=== PATIENT | male | born 1980 | race Caucasian/White ===

== ENCOUNTER 2018-04-09 23:38 | Emergency (ER) | payer OTHER ==
[2018-04-10 00:56] LABS: Absolute Lymphocytes (CBC) 2.3 K/uL (0.7-4.9); Absolute Monocytes 0.6 K/uL (0.1-1.3); Absolute Neutrophil 4.4 K/uL (1.8-8.0); Basophils % 0.7 % (0-1.3); Eosinophils % 1.5 % (0-4.4); Hematocrit 44.6 % (39.6-49.0); Lymphocytes % 30.8 % (15.3-44.8); MPV 9.2 fL (7.6-11.3); Monocytes % 7.7 % (3.3-12.3); RBC Red Blood Cell Count 4.91 M/uL (4.33-5.43)
[2018-04-10] MEDS ORDERED: NA CHLORIDE 0.9% 1,000 ML ONE (00:56)
[2018-04-10] MEDS ORDERED: MORPHINE 4 MG/ML SYR ONE (00:56)
[2018-04-10] MEDS ORDERED: ONDANSETRON 4 MG/2 ML VIAL ONE (00:56)
[2018-04-10] MEDS ORDERED: KETOROLAC 30 MG/ML INJ ONE (00:56)
[2018-04-10 01:00] LABS: Protime INR 0.92
[2018-04-10 01:25] LABS: Barbiturates POSITIVE (NEGATIVE); Benzodiazepines NEGATIVE (NEGATIVE); Cocaine NEGATIVE (NEGATIVE); METHAMPHETAM NEGATIVE (NEGATIVE); Methadone NEGATIVE (NEGATIVE); Opiates NEGATIVE (NEGATIVE); Phencyclidine NEGATIVE (NEGATIVE); THC Cannibis POSITIVE (NEGATIVE)
[2018-04-10 01:25] LABS: ALT/SGPT 55 U/L (12-78); AST/SGOT 31 U/L (15-37); Albumin 3.7 g/dL (3.4-5.0); Alkaline Phosphatase 68 U/L (45-117); BUN Blood Urea Nitrogen 7 mg/dL (7-18); Bicarbonate 29 mmol/L (21-32); Bilirubin Direct < 0.1 mg/dL (0-0.2); Bilirubin Total 0.2 mg/dL (0.2-1.0); Glucose Level 92 mg/dL (74-106); Magnesium 2.3 mg/dL (1.8-2.4); NT PRO-BNP 9 pg/mL (<125); Potassium 3.8 mmol/L (3.5-5.1); Protein, Total 7.9 g/dL (6.4-8.2); Sodium Level 142 mmol/L (136-145); Troponin (Emerg Dept Use Only) < 0.02 ng/mL (0.0-0.045)
[2018-04-10 01:39] LABS: Urine Blood NEGATIVE (NEG); Urine Glucose NEGATIVE (NEG); Urine Protein NEGATIVE (NEG)
[2018-04-10 01:46] LABS: Thyroid Stimulating Hormone 0.456 uIU/mL (0.360-3.740)
--- NOTE | 2018-04-10 01:54 | EDPHYS ---
Physician Documentation [facility] Name: Ramirez Barajas Age: 38 yrs Sex: Male : 1980 Arrival Date: 04/09/2018 Time: 23:43 Bed 28 Private MD: ED Physician Fede Hassan HPI: 04/10 00:27 This 38 yrs old Male presents to ER via Wheelchair with complaints of hailey Headache, Chest Pain, HIV positive. 00:27 The patient complains of pain to the forehead, left temporal area and right temporal hailey area. The patient describes the headache as aching, constant. Onset: The symptoms/episode began/occurred 2 day(s) ago. Associated signs and symptoms: The patient has no apparent associated signs or symptoms. Severity of symptoms: At its worst the pain was moderate, in the emergency department the pain is unchanged. Headache History: The patient has had previous headaches and this one is similar to previous episodes. The patient has experienced similar episodes in the past, multiple times. Historical: - Allergies: 00:28 Erythromycin; rv - Home Meds: 01:07 levetiracetam 500 mg oral tab 1 tab 2 times per day [Active]; gabapentin 800 mg oral rv tab 1 tab 3 times per day [Active]; Descovy 200-25 mg oral tab 1 tab once daily [Active]; dolutegravir oral 50 MG oral 1 tab once daily [Active]; phenobarbital 64.8 mg Oral tab 1 tab THREE TIMES A DAY [Active]; fluoxetine 40 mg Oral cap 1 cap once daily [Active]; Trokendi XR 50 mg oral cp24 [Active]; ondansetron HCl 4 mg Oral tab [Active]; - PMHx: 00:28 HIV; Hepatitis; PERIPHERAL NEUROPATHY; OSTEOPENIA; Hypertension; rv - PSHx: 00:28 Appendectomy; RIGHT ANKLE; rv - Immunization history:: Adult Immunizations up to date. - Social history:: Smoking status: Patient uses tobacco products. - Ebola Screening: : Patient negative for fever greater than or equal to 101.5 degrees Fahrenheit, and additional compatible Ebola Virus Disease symptoms Patient denies exposure to infectious person Patient denies travel to an Ebola-affected area in the 21 days before illness onset. ROS: 00:27 Constitutional: Negative for fever, chills, and weight loss, Eyes: Negative for injury, hailey pain, redness, and discharge, ENT: Negative for injury, pain, and discharge, Neck: Negative for injury, pain, and swelling, Respiratory: Negative for shortness of breath, cough, wheezing, and pleuritic chest pain, Abdomen/GI: Negative for abdominal pain, nausea, vomiting, diarrhea, and constipation, Back: Negative for injury and pain, : Negative for injury, bleeding, discharge, and swelling, MS/Extremity: Negative for injury and deformity, Skin: Negative for injury, rash, and discoloration, Neuro: Negative for headache, weakness, numbness, tingling, and seizure. 00:27 Cardiovascular: Positive for chest pain, palpitations. Exam: 00:29 Constitutional: This is a well developed, well nourished patient who is awake, alert, hailey and in no acute distress. Head/Face: Normocephalic, atraumatic. Eyes: Pupils equal round and reactive to light, extra-ocular motions intact. Lids and lashes normal. Conjunctiva and sclera are non-icteric and not injected. Cornea within normal limits. Periorbital areas with no swelling, redness, or edema. ENT: Nares patent. No nasal discharge, no septal abnormalities noted. Tympanic membranes are normal and external auditory canals are clear. Oropharynx with no redness, swelling, or masses, exudates, or evidence of obstruction, uvula midline. Mucous membranes moist. Neck: Trachea midline, no thyromegaly or masses palpated, and no cervical lymphadenopathy. Supple, full range of motion without nuchal rigidity, or vertebral point tenderness. No Meningismus. Chest/axilla: Normal chest wall appearance and motion. Nontender with no deformity. No lesions are appreciated. Respiratory: Lungs have equal breath sounds bilaterally, clear to auscultation and percussion. No rales, rhonchi or wheezes noted. No increased work of breathing, no retractions or nasal flaring. Abdomen/GI: Soft, non-tender, with normal bowel sounds. No distension or tympany. No guarding or rebound. No evidence of tenderness throughout. Back: No spinal tenderness. No costovertebral tenderness. Full range of motion. Male : Normal genitalia with no discharge or lesions. Skin: Warm, dry with normal turgor. Normal color with no rashes, no lesions, and no evidence of cellulitis. MS/ Extremity: Pulses equal, no cyanosis. Neurovascular intact. Full, normal range of motion. Neuro: Awake and alert, GCS 15, oriented to person, place, time, and situation. Cranial nerves II-XII grossly intact. Motor strength 5/5 in all extremities. Sensory grossly intact. Cerebellar exam normal. Normal gait. Psych: Awake, alert, with orientation to person, place and time. Behavior, mood, and affect are within normal limits. 00:29 Cardiovascular: JVD: 00:48 Neck: ROM/movement: is normal, no acute changes, Meningeal signs: are not present, [facility] Kernig's sign is negative, Brudzinski's sign is negative. 01:49 Musculoskeletal/extremity: DVT Exam: No signs of deep vein thrombosis. no pain, no hailey swelling, no tenderness, negative Homans' sign noted on exam, no appreciated bluish discoloration, no erythema, no increased warmth. Vital Signs: 00:30 BP 136 / 108; Pulse 88; Resp 18; Temp 97.7; Pulse Ox 98% on R/A; Weight 95.25 kg (R); rv 01:10 BP 119 / 86; Pulse 82; Resp 18 S; Pulse Ox 99% on R/A; rv 01:31 BP 126 / 99; Pulse 86; Resp 17 S; Pulse Ox 99% on R/A; rv MDM: 00:24 Patient medically screened. [facility] 00:29 Data reviewed: vital signs, nurses notes, lab test result(s), EKG, radiologic studies, [facility] CT scan, plain films. 04/10 00:27 Order name: Basic Metabolic Panel; Complete Time: :49 [facility] 04/10 00:27 Order name: CBC with Diff; Complete Time: 01:28 [facility] 04/10 00:27 Order name: LFT's; Complete Time: :49 [facility] 04/10 00:27 Order name: Magnesium; Complete Time: 49 [facility] 04/10 00:27 Order name: NT PRO-BNP; Complete Time: :49 [facility] 04/10 00:27 Order name: PT-INR; Complete Time: 01:28 [facility] 04/10 00:27 Order name: Troponin (emerg Dept Use Only); Complete Time: :49 [facility] 04/10 00:27 Order name: Acetaminophen; Complete Time: :49 [facility] 04/10 00:27 Order name: ETOH Level; Complete Time: 01:28 hailey 04/10 00:27 Order name: Ptt, Activated; Complete Time: 01:28 hailey 04/10 00:27 Order name: Salicylate; Complete Time: 01:47 [facility] 04/10 00:27 Order name: Urine Drug Screen; Complete Time: 01:28 hailey 04/10 00:27 Order name: TSH; Complete Time: 01:49 [facility] 04/10 01:11 Order name: Urine Dipstick--Ancillary (enter results); Complete Time: 01:47 ag4 02 00:27 Order name: XRAY Chest (1 view) [facility] 04/10 00:27 Order name: EKG; Complete Time: 00:28 [facility] 04/10 00:27 Order name: Cardiac monitoring; Complete Time: 00:42 [facility] 04/10 00:27 Order name: EKG - Nurse/Tech; Complete Time: 00:42 [facility] 04/10 00:27 Order name: IV Saline Lock; Complete Time: 00:46 [facility] 04/10 00:27 Order name: Labs collected and sent; Complete Time: 00:46 [facility] 04/10 00:27 Order name: O2 Per Protocol; Complete Time: 00:42 [facility] 04/10 00:27 Order name: O2 Sat Monitoring; Complete Time: 00:42 [facility] 04/10 00:27 Order name: Urine Dipstick-Ancillary (obtain specimen); Complete Time: 01:08 [facility] 04/10 00:27 Order name: CT Head Brain wo Cont hailey Administered Medications: 01:07 Drug: Zofran 4 mg Route: IVP; Site: right antecubital; rv 02:11 Follow up: Response: No adverse reaction rv 01:08 Drug: NS 0.9% 1000 ml Route: IV; Rate: 1 bolus; Site: right antecubital; rv 02:12 Follow up: IV Status: Completed infusion rv 01:08 Drug: morphine 4 mg Route: IVP; Site: right antecubital; rv 02:12 Follow up: Response: Pain is decreased rv 01:08 Drug: TORadol 30 mg Route: IVP; Site: right antecubital; rv 02:11 Follow up: Response: Pain is unchanged, physician notified rv 02:11 Drug: [place] 10 mg-325 mg 1 tabs Route: PO; rv 02:11 Follow up: Response: Medication administered at discharge. rv Disposition: 04/10/18 01:53 Discharged to Home. Impression: Headache, Palpitations, Human immunodeficiency virus [HIV] disease. - Condition is Stable. - Discharge Instructions: General Headache Without Cause, Palpitations, Palpitations, Xrip-jn-Besl, General Headache Without Cause, Zcon-kv-[id number], HIV Infection and AIDS. - Medication Reconciliation Form, Thank You Letter, Antibiotic Education, Prescription Opioid Use form. - Follow up: Private Physician; When: 2 - 3 days; Reason: Recheck today's complaints, Continuance of care, Re-evaluation by your physician. Follow up: Angel Cedeno; When: 2 - 3 days; Reason: Recheck today's complaints, Re-evaluation by your physician. Follow up: Perry Isidro; When: 2 - 3 days; Reason: Recheck today's complaints, Re-evaluation by your physician. - Problem is new. - Symptoms have improved. Signatures: Dispatcher [employer] EDFede Calvillo MD MD cha Vicente, Ronaldo, RN RN rv Corrections: (The following items were deleted from the chart) 02:12 01:53 04/10/2018 01:53 Discharged to Home. Impression: Headache; Palpitations; Human rv immunodeficiency virus [HIV] disease. Condition is Stable. Discharge Instructions: General Headache Without Cause, Palpitations, Palpitations, Ejre-si-Qowl, General Headache Without Cause, Nlkc-sf-Lozi, HIV Infection and AIDS. Forms are Medication Reconciliation Form, Thank You Letter, Antibiotic Education, Prescription Opioid Use. Follow up: Private Physician; When: 2 - 3 days; Reason: Recheck today's complaints, Continuance of care, Re-evaluation by your physician. Follow up: Angel Cedeno; When: 2 - 3 days; Reason: Recheck today's complaints, Re-evaluation by your physician. Follow up: Perry Isidro; When: 2 - 3 days; Reason: Recheck today's complaints, Re-evaluation by your physician. Problem is new. Symptoms have improved. hailey
--- NOTE | 2018-04-10 01:54 | ER ---
Nurse's Notes [facility] Name: Ramirez Barajas Age: 38 yrs Sex: Male : 1980 Arrival Date: 04/09/2018 Time: 23:43 Bed 28 Private MD: Diagnosis: Headache;Palpitations;Human immunodeficiency virus [HIV] disease Presentation: 04/10 00:22 Presenting complaint: Patient states: "I HAVE BRAIN INJURY. THEY PUT VAGAL STIMULATOR rv ON ME BUT IT STOPPED WORKING. NOW IM HAVING REAL BAD HEADACHES. I ALSO FEEL PALPITATIONS ON MY CHEST.". Transition of care: patient was not received from another setting of care. Onset of symptoms was April 09, 2018 at 08:00. Risk Assessment: Do you want to hurt yourself or someone else? Patient reports no desire to harm self or others. Initial Sepsis Screen: Does the patient meet any 2 criteria? No. Patient's initial sepsis screen is negative. Does the patient have a suspected source of infection? No. Patient's initial sepsis screen is negative. Care prior to arrival: None. 00:22 Method Of Arrival: Wheelchair rv 00:22 Acuity: AMADA 3 rv Triage Assessment: 00:29 Headache History: The patient has had previous headaches and this one is similar to previous episodes. General: Appears in no apparent distress. uncomfortable, Behavior is drowsy. Pain: Complains of pain in HEAD Pain currently is 8 out of 10 on a pain scale. Pain began gradually, Also complains of no other associated symptoms. Neuro: Level of Consciousness is awake, alert, obeys commands, Oriented to person, place, time, situation. Cardiovascular: Capillary refill < 3 seconds. Historical: - Allergies: 00:28 Erythromycin; rv - Home Meds: 01:07 levetiracetam 500 mg oral tab 1 tab 2 times per day [Active]; gabapentin 800 mg oral rv tab 1 tab 3 times per day [Active]; Descovy 200-25 mg oral tab 1 tab once daily [Active]; dolutegravir oral 50 MG oral 1 tab once daily [Active]; phenobarbital 64.8 mg Oral tab 1 tab THREE TIMES A DAY [Active]; fluoxetine 40 mg Oral cap 1 cap once daily [Active]; Trokendi XR 50 mg oral cp24 [Active]; ondansetron HCl 4 mg Oral tab [Active]; - PMHx: 00:28 HIV; Hepatitis; PERIPHERAL NEUROPATHY; OSTEOPENIA; Hypertension; rv - PSHx: 00:28 Appendectomy; RIGHT ANKLE; rv - Immunization history:: Adult Immunizations up to date. - Social history:: Smoking status: Patient uses tobacco products. - Ebola Screening: : Patient negative for fever greater than or equal to 101.5 degrees Fahrenheit, and additional compatible Ebola Virus Disease symptoms Patient denies exposure to infectious person Patient denies travel to an Ebola-affected area in the 21 days before illness onset. Screenin:32 Abuse screen: Denies threats or abuse. Denies injuries from another. Nutritional rv screening: No deficits noted. Tuberculosis screening: No symptoms or risk factors identified. Fall Risk None identified. Assessment: 00:31 General: Appears in no apparent distress. unkempt, Behavior is drowsy. Pain: Complains rv of pain in right temporal area and left temporal area and forehead. Neuro: Level of Consciousness is awake, alert, obeys commands, Oriented to person, place, time, situation. Cardiovascular: Capillary refill < 3 seconds. Respiratory: Airway is patent. GI: No signs and/or symptoms were reported involving the gastrointestinal system. : No signs and/or symptoms were reported regarding the genitourinary system. EENT: No signs and/or symptoms were reported regarding the EENT system. Derm: Skin is intact. Musculoskeletal: No signs and/or symptoms reported regarding the musculoskeletal system. Vital Signs: 00:30 BP 136 / 108; Pulse 88; Resp 18; Temp 97.7; Pulse Ox 98% on R/A; Weight 95.25 kg (R); rv 01:10 BP 119 / 86; Pulse 82; Resp 18 S; Pulse Ox 99% on R/A; rv 01:31 BP 126 / 99; Pulse 86; Resp 17 S; Pulse Ox 99% on R/A; rv ED Course: 04/09 23:43 Patient arrived in ED. es 04/10 00:23 Triage completed. rv 00:24 Fede Hassan MD is Attending Physician. hailey 00:32 Patient has correct armband on for positive identification. Bed in low position. Call rv light in reach. Side rails up X 1. radiology ct technologist on. Pulse ox on. NIBP on. 00:32 Patient placed in an exam room, on a stretcher, on speech clinician, on pulse oximetry, rv Patient notified of wait time. 00:40 Inserted saline lock: 20 gauge in right antecubital area, using aseptic technique. rv Blood collected. 00:40 Initial lab(s) drawn, by me, sent to lab. rv 00:46 XRAY Chest (1 view) Sent. rv 00:46 Troponin (emerg Dept Use Only) Sent. rv 00:47 PT-INR Sent. rv 00:47 NT PRO-BNP Sent. rv 00:47 Magnesium Sent. rv 00:47 Basic Metabolic Panel Sent. rv 00:47 CBC with Diff Sent. rv 00:47 LFT's Sent. rv 00:47 Salicylate Sent. rv 00:47 Ptt, Activated Sent. rv 00:47 ETOH Level Sent. rv 00:47 Acetaminophen Sent. rv 00:48 X-ray completed. Portable x-ray completed in exam room. Patient tolerated procedure kw well. 00:50 Radiology exam delayed due to Patient being given pain medication at this time. kw1 00:52 XRAY Chest (1 view) In Process Unspecified. EDMS 01:[address] via stretcher. kw1 01:08 CT Head Brain wo Cont Sent. rv 01:51 CT Head Brain wo Cont In Process Unspecified. EDMS 01:52 Angel Cedeno MD is Referral Physician. hailey 01:52 Perry Isidro MD is Referral Physician. hailey 01:59 No provider procedures requiring assistance completed. IV discontinued, bleeding rv controlled, No redness/swelling at site. Pressure dressing applied. Administered Medications: 01:07 Drug: Zofran 4 mg Route: IVP; Site: right antecubital; rv 02:11 Follow up: Response: No adverse reaction rv 01:08 Drug: NS 0.9% 1000 ml Route: IV; Rate: 1 bolus; Site: right antecubital; rv 02:12 Follow up: IV Status: Completed infusion rv 01:08 Drug: morphine 4 mg Route: IVP; Site: right antecubital; rv 02:12 Follow up: Response: Pain is decreased rv 01:08 Drug: TORadol 30 mg Route: IVP; Site: right antecubital; rv 02:11 Follow up: Response: Pain is unchanged, physician notified rv 02:11 Drug: [place] 10 mg-325 mg 1 tabs Route: PO; rv 02:11 Follow up: Response: Medication administered at discharge. rv Outcome: 01:53 Discharge ordered by . hailey 01:59 Discharged to home ambulatory. rv 01:59 Condition: good 01:59 Discharge instructions given to patient, Instructed on discharge instructions, follow up and referral plans. Demonstrated understanding of instructions, follow-up care. 02:12 Patient left the ED. rv Signatures: Dispatcher [employer] Fede Woodard MD MD cha Salyer, Edna es Whitley, Kimberlee kw Wilhelm, Kimberly kwAdan Cortés, RN RN rv
[2018-04-10] MEDS ORDERED: HYDROCODONE/APAP 10/325 TAB ONE (02:14)
--- NOTE | 2018-04-10 09:33 | RAD REPORT ---
EXAM DESCRIPTION: RAD - Chest Single View - 04/10/2018 12:50 am CLINICAL HISTORY: Cough COMPARISON: None. TECHNIQUE: AP portable chest image was obtained 0046 hours . FINDINGS: Lung volumes are low. Interstitial markings are prominent most likely baseline. No mass or consolidation. Heart and vasculature are normal. No measurable pleural effusion and no pneumothorax. No acute bony abnormality seen. No acute aortic findings suspected. IMPRESSION: Limited shallow inspiration without a significant cardiopulmonary finding. Interstitial markings are prominent. A minimal interstitial edema or infiltrate could be masked.
--- NOTE | 2018-04-10 11:58 | RAD REPORT ---
EXAM DESCRIPTION: CT - Head Brain Wo Cont CLINICAL HISTORY: The patient is 38 years old and is Male: HEADACHE COMPARISON: No relevant prior studies available. TECHNIQUE: Axial computed tomography images of the head/brain without intravenous contrast. Sagittal and coronal reformatted images were created and reviewed. This CT exam was performed using one or more of the fo llowing dose reduction techniques: Automated exposure control, adjustment of the mA and/or kV accordi ng to patient size, and/or use of iterative reconstruction technique. FINDINGS: Brain: Unremarkable. The forrester-white matter differentiation is preserved. No hemorrhage. No significant white matter disease. No edema. No extra-axial fluid collections. Ventricles: Unremarkable. No ventriculomegaly. Bones/Joints: No acute fracture. Soft tissues: Unremarkable. Sinuses: Unremarkable as visualized. No acute sinusitis. Mastoid air cells: Unremarkable as visualized. No mastoid effusion. 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 IMPRESSION: No acute intracranial findings. The findings were discussed via telephone conference with Dr. Fede Hassan by Dr. Sapphire Lou on 04/10/2018 1:51 AM SEWER PIPE LAYER HELPER. The results were acknowledged and understood. Electronically signed by: Sapphire Lou MD 04/10/2018 1:52 AM SEWER PIPE LAYER HELPER Due to temporary technical issues with the PACS/Fluency reporting system, reports are being signed by the in house radiologist as a courtesy to ensure prompt reporting. The interpreting radiologist is f ully responsible for the content of the report.
--- NOTE | 2018-04-10 16:17 | EKG ---
Test Date: 2018-04-10 Test Time: 00:37:52 Manager Book: MICHELLET MEASUREMENT RESULTS: Intervals: Rate: 85 NC: 178 QRSD: 108 QT: 376 QTc: 447 [place]: P: 53 NC: 178 QRS: 50 T: 47 INTERPRETIVE STATEMENTS: Normal sinus rhythm Normal ECG No previous ECG available for comparison Electronically Signed On 04-10-18 16:16:49 BOOTH CASHIER by Brian Rapp
== END 2018-04-10 02:12 | disposition home or self-care (01) ==
LOC: ER 23:38
DX: R00.2 Palpitations (principal); Z21 Asymptomatic human immunodeficiency virus [HIV] infection status; I10 Essential (primary) hypertension; Z72.0 Tobacco use; Z88.3 Allergy status to other anti-infective agents
CPT/HCPCS: 36415; 70450; 71045; 80048; 80076; 80307 ×8; 80320; 80329 ×2; 81003; 83735; 83880; 84443; 84484; 85025; 85610; 85730; 93005; 96361; 96374; 96375; 99285; J2405; J7030